=== PATIENT | female | born 1980 | race Hispanic/Latino ===

== ENCOUNTER 2021-02-16 20:26 | Emergency (ER) | payer BC ==
[~2021-02-16] VITALS: Ht 157.5 cm; Wt 80.7 kg
== END 2021-02-16 23:30 | disposition home or self-care (01) ==
LOC: FSED 22:05
DX: K59.00 Constipation, unspecified (principal); E11.9 Type 2 diabetes mellitus without complications; K21.9 Gastro-esophageal reflux disease without esophagitis
CPT/HCPCS: 99283